=== PATIENT | male | born 1935 | race Caucasian/White ===

== ENCOUNTER 2024-09-22 14:52 | Inpatient (IN) | payer BC, MEDICARE ==
[~2024-09-22] VITALS: Ht 177.8 cm; Wt 83.9 kg
[2024-09-22 15:12] LABS: BASOPHILS # (AUTO) 0.1 K/UL (0.0-0.2); BASOPHILS % (AUTO) 0.9 % (0.0-2.0); EOSINOPHILS # (AUTO) 0.2 K/uL (0.0-0.7); EOSINOPHILS % (AUTO) 2.8 % (0.0-7.0); HEMATOCRIT 39.2 % (36.7-47.1); HEMOGLOBIN 12.9 g/dL (12.5-16.3); LYMPHOCYTES # (AUTO) 2.1 K/uL (0.8-4.8); LYMPHOCYTES % (AUTO) 24.3 % (20.5-51.5); MEAN CORPUSCULAR HEMOGLOBIN 30.9 uug (23.8-33.4); MEAN CORPUSCULAR HGB CONC 33 g/dL (32.5-36.3); MEAN CORPUSCULAR VOLUME 93.8 fL (73.0-96.2); MONOCYTES # (AUTO) 1.1 K/uL (0.1-1.30); MONOCYTES % (AUTO) 13.1 % (0.0-11.0); NEUTROPHILS # (AUTO) 5.1 K/uL (1.8-8.9); NEUTROPHILS % (AUTO) 58.9 % (38.5-71.5); PLATELET COUNT (AUTO) 221 K/uL (152-348); RED BLOOD CELL COUNT(AUTO) 4.18 MIL/uL (4.06-5.63); RED CELL DISTRIBUTION WIDTH 14.1 % (12.1-16.2); WHITE BLOOD COUNT (AUTO) 8.7 K/uL (3.6-10.2)
[2024-09-22] MEDS ORDERED: FINA5TAB11 (15:13)
[2024-09-22] MEDS ORDERED: CARB-96 (15:13)
[2024-09-22] MEDS ORDERED: DONE10TA11 (15:13)
[2024-09-22] MEDS ORDERED: MIRA50TA (15:13)
[2024-09-22] MEDS ORDERED: TAMS0.4C34 (15:13)
[2024-09-22] MEDS ORDERED: ONDANSETRON 4 MG/2 ML VIAL ONE (15:20)
[2024-09-22] MEDS: ONDANSETRON 4 MG/2 ML VIAL IV ONE (15:22)
[2024-09-22 15:25] LABS: ALANINE AMINOTRANSFERASE 14 U/L (16-63); ALBUMIN 3.3 g/dL (3.4-5.0); ALKALINE PHOSPHATASE 130 U/L (50-136); ASPARTATE AMINOTRANSFERASE 21 U/L (15-37); BILIRUBIN,DIRECT 0.2 mg/dL (0.0-0.2); BILIRUBIN,TOTAL 0.4 mg/dL (0.2-1.0); CALCIUM 8.8 mg/dL (8.5-10.1); CARBON DIOXIDE 27 mmol/L (21-32); CHLORIDE 103 mmol/L (98-107); CREATININE 1.1 mg/dL (0.6-1.3); LIPASE 43 U/L (16-77); POTASSIUM 4.4 mmol/L (3.5-5.1); SODIUM SERUM 140 mmol/L (136-145); TOTAL PROTEIN, SERUM 7.4 g/dL (6.4-8.2); UREA NITROGEN, BLOOD 25 mg/dL (7-18)
[2024-09-22 15:27] LABS: DIFFERENTIAL COMMENT 1
[2024-09-22 15:31] LABS: *BILIRUBIN,URIN NEGATIVE (NEGATIVE); *BLOOD, URINE 2+ (NEGATIVE); *CLARITY,URINE CLEAR (CLEAR); *COLOR,URINE YELLOW (YELLOW); *KETONES,URINE TRACE (NEGATIVE); *PROTEIN,URINE 2+ (NEGATIVE); *UROBILINOGEN,URINE 0.2 E.U./dl (NORMAL); LEUKOCYTE ESTERASE ,URINE 1+ (NEGATIVE); NITRITE, URINE POSITIVE (NEGATIVE); UGLUCOSE NEGATIVE (NEGATIVE)
[2024-09-22 15:42] LABS: BACTERIA,URINE MANY /HPF (NONE SEEN); WBC,URINE TNTC /HPF (0-3)
[2024-09-22 15:43] LABS: SQUAMOUS EPITHELIAL CELL,UR MODERATE /HPF (NONE SEEN)
[2024-09-22 15:45] LABS: GLUCOSE 110 mg/dL (74-106)
[2024-09-22] MEDS ORDERED: CEFTRIAXONE /D5W 50ML IVPB **ER PYXIS IV ONE (16:18)
[2024-09-22] MEDS: CEFTRIAXONE 1 G in IV DEXTROSE 5% 50 ML IV ONE (16:37)
[2024-09-22] MEDS: IV NORMAL SALINE 1000 ML BAG IV ONE (16:37)
[2024-09-22] MEDS ORDERED: MAGNESIUM HYDROXIDE 30 ML LIQUID UDC PO PRN (17:15)
[2024-09-22] MEDS ORDERED: ACETAMINOPHEN 325 MG TABLET PO PRN (17:15)
[2024-09-22] MEDS ORDERED: REMEDY ESSENTIAL ZINC PASTE 113 GM TP PRN (17:15)
[2024-09-22] MEDS ORDERED: CARB1TAB21 PO (17:21)
[2024-09-22] MEDS ORDERED: DONE10TA44 PO (17:22)
[2024-09-22] MEDS ORDERED: FINA5TAB3 PO (17:22)
[2024-09-22] MEDS ORDERED: MIRA50TA PO (17:23)
[2024-09-22] MEDS ORDERED: TAMS-3 PO (17:24)
[2024-09-22] MEDS ORDERED: TRIA10.8 BNOSTRILS (17:25)
[2024-09-22] MEDS ORDERED: DICL100G31 TP (17:27)
[2024-09-22] MEDS ORDERED: LOPE2TAB25 PO (17:28)
[2024-09-22 18:55] VITALS: BP 154/78; TEMP 97.4; O2SAT 93
[2024-09-22 20:30] VITALS: BP 158/63; TEMP 97.4; O2SAT 94
[2024-09-22] MEDS: ENOXAPARIN SODIUM 40 MG/0.4 ML DISP.SYRIN SQ SCH (21:20)
[2024-09-22] MEDS: IV NS 1000 ML 1,000 ML IV PRN (21:25)
[2024-09-23] VITALS (11 sets, daily range): BP systolic 118–195; BP diastolic 53–93; TEMP 97.4–98; O2SAT 92–98
[2024-09-23 06:45] LABS: BASOPHILS % (AUTO) 0.6 % (0.0-2.0); EOSINOPHILS # (AUTO) 0.2 K/uL (0.0-0.7); EOSINOPHILS % (AUTO) 2.2 % (0.0-7.0); HEMATOCRIT 36.1 % (36.7-47.1); HEMOGLOBIN 12.3 g/dL (12.5-16.3); LYMPHOCYTES # (AUTO) 1.6 K/uL (0.8-4.8); MEAN CORPUSCULAR HEMOGLOBIN 31.4 uug (23.8-33.4); MEAN CORPUSCULAR HGB CONC 34 g/dL (32.5-36.3); MEAN CORPUSCULAR VOLUME 92.2 fL (73.0-96.2); MONOCYTES # (AUTO) 1.3 K/uL (0.1-1.30); MONOCYTES % (AUTO) 15.1 % (0.0-11.0); NEUTROPHILS # (AUTO) 5.6 K/uL (1.8-8.9); NEUTROPHILS % (AUTO) 64.1 % (38.5-71.5); PLATELET COUNT (AUTO) 215 K/uL (152-348); RED BLOOD CELL COUNT(AUTO) 3.92 MIL/uL (4.06-5.63); RED CELL DISTRIBUTION WIDTH 13.9 % (12.1-16.2); WHITE BLOOD COUNT (AUTO) 8.7 K/uL (3.6-10.2)
[2024-09-23 06:54] LABS: DIFFERENTIAL COMMENT 1
[2024-09-23 06:58] LABS: CALCIUM 8.7 mg/dL (8.5-10.1); CARBON DIOXIDE 27 mmol/L (21-32); CHLORIDE 107 mmol/L (98-107); CREATININE 0.9 mg/dL (0.6-1.3); GLUCOSE 112 mg/dL (74-106); MAGNESIUM 2.2 mg/dL (1.8-2.4); PHOSPHOROUS 3.5 mg/dL (2.5-4.9); POTASSIUM 4.1 mmol/L (3.5-5.1); SODIUM SERUM 141 mmol/L (136-145); UREA NITROGEN, BLOOD 20 mg/dL (7-18)
[2024-09-23 08:21] LABS: EOSINOPHILS % (MANUAL) 3 % (0-8); LYMPHOCYTES % (MANUAL) 20 % (20-40); MONOCYTES % (MANUAL) 13 % (2-10); NEUTROPHILS % (MANUAL) 64 % (42-75); PLATELET ESTIMATE ADEQUATE
[2024-09-23] MEDS: CEFTRIAXONE 1 G in IV DEXTROSE 5% 50 ML IV SCH (15:58)
[2024-09-23] MEDS ORDERED: AMOX-430 PO (16:05)
[2024-09-23] MEDS: ONDANSETRON 4 MG/2 ML VIAL IV PRN (16:38)
[2024-09-23] MEDS: CARBIDOPA/LEVODOPA 25-100MG TABLET PO SCH (16:38)
[2024-09-23] MEDS: hydrALAZINE HCL 25 MG TABLET PO PRN (20:03)
[2024-09-23] MEDS: DONEPEZIL 10 MG TABLET PO SCH (20:03)
[2024-09-23] MEDS: TAMSULOSIN HCL 0.4 MG CAP.SR.24H PO SCH (20:03)
[2024-09-24 03:52] VITALS: BP 144/57
[2024-09-24] MEDS ORDERED: AMLO-212 PO (08:10)
[2024-09-24] MEDS ORDERED: Medication Not On Formulary EA (Mirabegron (Myrbetriq) 50 MG) PO SCH (09:00)
[2024-09-24] MEDS: FINASTERIDE 5 MG TABLET PO SCH (09:01)
[2024-09-24 09:02] VITALS: BP 150/59
[2024-09-24] MEDS: AMLODIPINE 5 MG TABLET PO SCH (09:02)
== END 2024-09-24 10:35 | disposition home health service (06) | DRG 309 ==
LOC: ER 14:52 → EDBD 14:52 → TELE3 18:33 → MEDSURG3 09-23 10:04
PROVIDERS: ADMIT Internal Medicine; ATTEND Internal Medicine
DX: I44.1 Atrioventricular block, second degree (principal); N39.0 Urinary tract infection, site not specified; T83.511A Infection and inflammatory reaction due to indwelling urethral catheter, initial encounter; Y73.8 Miscellaneous gastroenterology and urology devices associated with adverse incidents, not elsewhere classified; Y92.099 Unspecified place in other non-institutional residence as the place of occurrence of the external cause; G20.A1 Parkinson's disease without dyskinesia, without mention of fluctuations; N40.1 Benign prostatic hyperplasia with lower urinary tract symptoms; G90.89 Other disorders of autonomic nervous system; R33.8 Other retention of urine; R79.89 Other specified abnormal findings of blood chemistry; I70.0 Atherosclerosis of aorta; K44.9 Diaphragmatic hernia without obstruction or gangrene; K57.30 Diverticulosis of large intestine without perforation or abscess without bleeding
CPT/HCPCS: 36415; 70030-TC; 70450; 71045; 83605; 83690; 83735; 84100; 84484; 85025; 87040; 93005; 93307; A4606; A4663; G0378; J0696; J1650; J2405; J7040